=== PATIENT | female | born 1960 | race Caucasian/White ===

== ENCOUNTER 2020-10-20 11:11 | Observation (INO) | payer BC, OTHER ==
[~2020-10-20] VITALS: Ht 167.6 cm; Wt 79.4 kg
[~2020-10-20 11:11] MED LIST: BUPROPION XL300 MG PO; CITRACAL + D E1 EACH PO; EMERGEN-C 1,01000 MG PO; FISH OIL 1,0001 EAC9 PO; JUICE PLUS PO; LAMICTAL150 MG PO; LAMOTRIGINE150 MG PO; LIPITOR 40 MG T40 M1 PO; LORAZEPAM 0.50.5 MG PO; MEDROL DOSPAK21 TA1 PO; METFORMIN HCL500 MG PO; PREDNISONE5 MG PO; PROMETRIUM100 MG PO; VALACYCLOVIR500 MG PO; VITAMIN D325 MC3 PO; VITAMIN E400 UNI2 PO; VYVANSE50 MG PO; ZPAK PO
[2020-10-20 12:30] VITALS: BP 147/62
[2020-10-20 18:20] VITALS: BP 125/62
[2020-10-20 19:09] VITALS: BP 121/56
--- NOTE | 2020-10-20 19:40 | NUR ---
ASSUMED PT CARE AT 1600 FROM PACU. PT IS ALERT & ORIENTED X 4 BUT FORGETFUL AT TIMES. PT HAS IV SITE ON L HAD. PT IS ON ROOM AIR. PT IS ACCUCHECK ACHS. PT HAD R TOTAL HIP REPLACEMENT TODAT. PT HAS [employer], SCD AND ICE PACK. PT C/O OF PAIN AND GIVEN PAIN MEDICATION PER PT REQUEST. PT WAS AT THE BEDSIDE THIS AFTERNOON. PT ON THE BED, BED ON THE LOWEST POSITION, SIDE RAILS UP, CALL LIGHT WITHIN REACH. WILL CONTINUE TO MONITOR PT. FOLLOW POC.
[2020-10-21 04:15] VITALS: BP 143/67
--- NOTE | 2020-10-21 05:50 | NUR ---
PT IS A/O X4 AND IS UP WITH ASSISTANCE. ROOM AIR. VSS AFEBRILE. C/O PAIN TO HIP. PRN PAIN MEDICATION GIVEN DIRECTED. REQUESTED TO BE ABLE TO GET UP TO THE BR. STATED SHE FELT THOUGH SHE WAS UNABLE TO EMPTY BLADDER USING A BEDPAN. WITH ASSISTANCE/SBA WITH A WALKER AND GB WAS ABLE TO TRANSFER WITH EASE TO THE BSC. IV INFILTRATED AND WAS REMOVED AND REPLACED. PT IS PLEASANT AND COOPERATIVE. FALL PRECAUTIONS IN PLACE, CALL LIGHT IS WITHIN REACH. WILL CONTINUE TO MONITOR.
[2020-10-21 07:45] VITALS: BP 132/62
[2020-10-21 11:36] VITALS: BP 132/62
--- NOTE | 2020-10-21 12:38 | NUR ---
RN went over all discharge education, all questions answered, IV out, patient refused signing the medicare letter, will have walker to go home with, and discharged to home.
--- NOTE | 2020-10-21 13:46 | NUR ---
PT ADMITTED RELATED TO RIGHT TOTAL HIP REPLACEMENT. CM REVIWED CHART AND SPOKE WITH CARE TEAM THIS DAY. CM MET WITH PT AT BEDSIDE THIS DAY. PT APPERARED TO BE A&O X4. CM ROLE INTRODUCED. PT INDICATED SHE LIVES IN A HOUSE WITH HER SPOUSE WITH 2 STEPS TO ENTER AND 12 STEPS TO BEDROOM. PT INDICATED SHE WILL BE SLEEPING ON MAIN LEVEL THIS EVENING. 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 PT WILL NEED A FWW FOR HOME USE UPON DC. PT INDICATED NO PREFERENCE FOR PROVIDER. PROVIDER PLUS ISSUED FWW. PT'S PCP IS DR. PHAM GREEN AT [facility]. PT IS SET UP WITH OP PT AT [facility] AT [address]. PT CLEARED TO DC HOME THIS DAY. WITH FWW AND OP PT. PT'S FAMILY TRANSPORTED HOME. CASE CLOSED.
--- NOTE | 2020-10-23 11:33 | O ---
[facility] [place] [address] OPERATIVE REPORT Name: TAWANDA CANO Room #: 439-P [facility] Ronny Buckley#: [id number] Admission: 10/20/20 Attend Phys: Jas Doty MD Discharge: 10/21/20 Date of : 56 Report #: [id number] THIS REPORT FOR: cc: Tayla Sims MD, Genelle J. MD Abraham,Jas Hodge MD ~ DOC #: [id number] Jas Doty MD DATE OF SERVICE: 10/20/2020 PREOPERATIVE DIAGNOSIS: Right hip osteoarthritis. POSTOPERATIVE DIAGNOSIS: Right hip osteoarthritis PROCEDURE: Right total hip arthroplasty. SURGEON: Jas Doty MD. CO SUPERVISOR [employer]ANDSCAPE: Sofya Florentino PA-C INDICATION FOR CO SUPERVISOR GROUNDS [employer] LANDSCAPE: Throughout the case extensive retraction and manipulation of the hip including dislocation and reduction was required. This was supported by my technical services assistant. ANESTHESIA: LMA. IMPLANTS: [employer]hew size 12 high offset Synergy press-fit stem, a size 54 R3 acetabular cup with one acetabular screw, size 36+0 Oxinium head, and a single Accord cerclage cable. ESTIMATED BLOOD LOSS: 100 mL. COMPLICATIONS: None. SPECIMENS: None. CONDITION UPON LEAVING OPERATING ROOM: Stable. INDICATIONS FOR PROCEDURE: The patient is a 59-year-old female with right hip osteoarthritis. She had failed conservative measures for this and after discussion with her, she elected for right total hip arthroplasty. DESCRIPTION OF PROCEDURE: Risks, benefits, alternatives, complications were discussed in detail with the patient including but not limited to risk of anesthesia, risk of damage to nerves, arteries, blood vessels, risk for infection, bleeding, risk for continued hip pain, leg length discrepancy, [facility] [address] [place] [address] OPERATIVE REPORT Name: TAWANDA CANO Room #: 439-P GOYO Buckley#: [id number] Admission: 10/20/20 Attend Phys: Jas Doty MD Discharge: 10/21/20 Date of : 56 Report #: [id number] instability and need for reoperation. Informed consent was obtained from the patient. Right hip was appropriately marked in the preoperative holding area. IV Ancef was given for preoperative antibiotics. She was brought to the operating room and placed in supine position on the operating room table. LMA anesthesia was induced without complication. She was then placed in the left lateral decubitus position with the right hip uppermost. Right hip and lower extremity were prepped and draped in normal sterile fashion. Timeout was performed properly identifying the patient and procedure as well as instrumentation and implants. All in the operating room in agreement. Standard posterior approach to the hip was made with 10 blade through the skin. Dissection was taken down sharply to the fascia with Bovie cautery. A Christine elevator was used to clean off the fascia. Fresh 10 blade was used to make a fascial incision. This was taken proximally and distally with curved Chang scissor taken down with Bovie cautery. Piriformis tendon was identified, tagged and taken down with Bovie. Short external rotators were also taken down with Bovie cautery. Capsulotomy was made and capsule ends were tagged for later repair. There was extensive osteoarthritic change of the femoral head. Femoral neck cut was made 1 cm proximal to the lesser trochanter based on preoperative templating. The femoral head was removed. Deep acetabular retractor was placed. Labrum was removed sharply. Pulvinar was removed with Bovie cautery. Acetabulum was then sequentially reamed up to a size 54, at which point there was excellent bleeding cancellous bone. A size 53 trial cup was placed, found to have a good fit. Final size 54 R3 acetabular cup was placed and seated. One acetabular screw was placed for backup fixation and a polyethylene liner for a 36 head was placed. After this, attention was turned to the femur. This was reamed and broached up to a size 12, which point the size 12 broach was stable. This was trialed with a high offset neck and a 36+0 head. Hip was reduced, taken through range of motion, found to be stable, found to have equal leg lengths. Hip was dislocated. Broach was removed. A single cord cerclage cable was placed around the proximal femur for prophylactic fixation and a final size 12 high offset Synergy press-fit stem was placed. This was then trialed with a 36+0 head. Hip was induced taken through range of motion, found to be stable, found to have equal leg length. Hip was dislocated one last time. A trial head was removed and final size 36+0 Oxinium head was placed. Hip was reduced, taken through range of motion, found to be stable, found to have equal leg lengths. Wound was thoroughly irrigated with normal saline. Periarticular injection consisting of morphine, ropivacaine, epinephrine, Toradol was placed deep in the hip joint capsule. A gram of vancomycin was placed deep in the joint capsule and piriformis were repaired with 0 FiberWire. Fascia was closed with 0 Vicryl. Skin was closed with 2-0 Vicryl, 3-0 Monocryl. Dermabond and a BRIONNA dressing was applied. The patient tolerated this procedure well and went to recovery room under care of anesthesia postoperatively. MD CHET Aguillon/VIRY/KULWINDER [facility] [address] [place] [address] OPERATIVE REPORT Name: TAWANDA CANO Room #: 439-P DIS Ronny MTimboRTimbo#: [id number] Admission: 10/20/20 Attend Phys: Jas Doty MD Discharge: 10/21/20 Date of : 56 Report #: [id number] <ELECTRONICALLY SIGNED> By: Jas Doty MD 10/23/20 1133 [id number] Jas Doty MD /nt
== END 2020-10-21 14:00 | disposition home or self-care (01) ==
LOC: OR → 4S 14:29 → OR 15:22 → 4S 10-21 14:00
PROVIDERS: ADMIT Orthopaedic Surgery; ATTEND Orthopaedic Surgery
DX: M16.11 Unilateral primary osteoarthritis, right hip (principal); Z79.899 Other long term (current) drug therapy
CPT/HCPCS: 50010; 50101; 50382; 50414; 53000; 53078; 53365; 53368; 54118; 56524; 56527; 56528; 56530; 57095; 57103; 57496; 62110; 62900; 70005